=== PATIENT | female | born 2000 | race Caucasian/White ===

== ENCOUNTER 2021-02-05 16:42 | Emergency (ER) | payer SELFPAY ==
[2021-02-05 16:44] VITALS: BP 123/78; PULSE 80; RESP 17; TEMP 36.8; O2SAT 100; BMI 30.5
--- NOTE | 2021-02-05 16:50 | XRR_ITS ---
PROCEDURE INFORMATION: Exam: XR Right Finger(s) Exam date and time: 02/05/2021 5:11 PM Age: 20 years old Clinical indication: Injury or trauma; Other: Smashed; Crushing; Right; Middle finger; Additional info: Trauma/crush injury; 3rd TECHNIQUE: Imaging protocol: XR Right fingers. Views: Minimum 2 views. COMPARISON: No relevant prior studies available. FINDINGS: Bones/joints: 3rd digit shows no evidence of fracture. Soft tissues: The 3rd digit nail bed is displaced. There is soft tissue effusion in the distal aspect of the 3rd digit. No clear-cut laceration or soft tissue foreign body is seen. XR/XR finger RT min 2V [id number] IMPRESSION: 1. No acute fracture is seen. 2. Soft tissue injury as described above 3rd digit
--- NOTE | 2021-02-05 16:55 | W.ED.UPPEXIN ---
Documented by User: KIT White 02/05/21 16:57 HPI - Extremity Injury (Upper) General: Chief Complaint: Wound/Laceration Stated Complaint: R. Hand Injury (Finger) Time Seen by Provider: 02/05/21 16:44 Source: patient Mode of arrival: ambulatory Limitations: no limitations History of Present Illness: HPI narrative: Patient is a 20-year-old female who presents to ED today with complaints of a crush injury to her right third finger after she accidentally caught it in a car door. complaint: injury to: right and finger Onset (ago): hour(s) Other Extremity Injury: Right: fingers Other injuries: none Handedness: right Place: home Severity: moderate Relieving factors: none Exacerbating factors: none Context: crush Associated symptoms: Reports no associated symptoms Physical Exam Const: COMMON NORMALS: no acute distress, average body habitus, patient oriented x3, no limitations, healthy appearing, alert and well nourished Extremity: GENERAL: Yes normal exam except as noted OTHER: almost complete nail avulsion to R 3rd digit; nail fold appears intact; blood noted so nail bed damage could not be assessed; will irrigate and re-assess; no other injuries noted Neuro: COMMON NORMALS: patient oriented x3, moves all extremities, no focal motor deficits and no sensory deficits noted SENSORIUM/ORIENTATION: Yes alert Course Vital Signs: Vital signs: Vital Signs Temperature 98.3 F 02/05/21 16:44 Pulse Rate 79 02/05/21 17:07 Respiratory Rate 16 02/05/21 17:07 Blood Pressure 112/71 02/05/21 17:07 Pulse Oximetry 100 02/05/21 17:07 Discharge Plan Discharge Patient Disposition: Home Clinical Impression: Nailbed avulsion Condition: Stable Prescriptions: No Action ibuprofen 200 mg Tablet 800 mg PO ONCE PRN (Reason: Pain) RF: 0 Discharge Orders: Discharge ED (Routine); Ordered 02/05/21 Ordered By: Griselda Quiroga Referrals: Laith Braga MD [Primary Care Provider] - Discharge Diet: Advance as tolerated Discharge Activity: Increase activity as tolerated Patient Instructions: Opioid Safety Activity Restrictions/Additional Instructions: Please keep clean and dry and dressing in place next 2-3 days but clean 2-3 times per day as discussed. Please return to ER with any concerns Sign Out Sign Out Data: Patient Sign Out occurred on 02/05/21 at 17:06. Patient's care was discussed, and care was transferred from to Griselda Quiroga. Coding Level of Care Code ED Air Brake Man for Chg Fwd Exam Expanded Problem Focused Documented by User: Griselda Quiroga 02/05/21 19:19 HPI - Extremity Injury (Upper) General: Chief Complaint: Wound/Laceration Stated Complaint: R. Hand Injury (Finger) Time Seen by Provider: 02/05/21 16:44 History of Present Illness: Associated symptoms: Denies neck pain or weakness in extremities Review of Systems Const: Denies: fever(s), chills, body aches, change in appetite, change in weight, fatigue, malaise or diaphoresis Eyes: Denies: change in vision, blurry vision, blind spots, photophobia, eye discomfort, eye discharge, eye redness, floaters or seeing flashes ENMT: Denies: throat pain, uvular edema, enlarged tonsils, odynophagia, hoarseness, mouth pain, swelling of lips/tongue, oral sores, bleeding gums, dental pain, dry mouth, ear or mastoid pain, ear discharge, change in hearing, tinnitus, disequilibrium, nasal discharge, nasal congestion, post nasal drip or sinus pain Card: Denies: chest pain, palpitations, irregular heart rhythm, edema, swelling of feet/ankles, lightheadedness, syncope, pre-syncope, dyspnea on exertion, orthopnea, leg pain with exertion or acrocyanosis Resp: Denies: dyspnea, productive cough, non-productive cough, wheezing, stridor, pain on inspiration, change in phlegm color, hemoptysis or chest congestion GI: Denies: abdominal pain, nausea, vomiting, hematemesis, dysphagia, diarrhea, constipation, GI cramping, change in bowel habits or rectal pain : Denies: flank pain, difficulty voiding, dysuria, urinary frequency, urinary urgency, urinary hesitancy or hematuria Musc: Reports: extremity pain (nail avulsion to right 3rd digit); Denies: neck pain, back pain, extremity swelling, joint pain, joint swelling, joint redness, joint warmth or deformity Skin/Breast: Denies: rash, pruritus, erythema, sores, new lesions, changes in skin color or dry skin Neuro: Denies: headache(s), numbness in extremities, weakness in extremities, sensory changes, lack of coordination, difficulty walking, frequent falls, dizziness, vertigo, confusion, behavioral changes, Slurred speech present, difficulty communicating thoughts or seizure-like activity Psych: Denies: anxiety, depression, suicidal ideation or homicidal ideation Endo: Denies: polyuria, polydipsia, tired all the time, cold intolerance, excessive sweating, flushing, hot flashes or heat intolerance George/Lymph: Denies: easy bruising, easy bleeding, petechiae, purpura, enlarged lymph nodes or tender lymph nodes All/Imm: Denies: urticaria, throat swelling, tongue swelling, facial swelling, acute wheezing or itchy eyes Physical Exam HENMT: THROAT: no uvular edema Procedures Laceration Laceration 1: Site: hand (right 3rd digit) Size (cm): 1.5 Description: irregular Depth: simple, single layer Local Anesthetic: lidocaine 1% Amount of anesthesia used (mL): 8 Pre-repair: wound explored and irrigated extensively Technique: other (no sutures required nail was remoed without difficulty) Course Vital Signs: Vital signs: Vital Signs Temperature 98.3 F 02/05/21 16:44 Pulse Rate 79 02/05/21 17:07 Respiratory Rate 16 02/05/21 17:07 Blood Pressure 112/71 02/05/21 17:07 Pulse Oximetry 100 02/05/21 17:07 MDM - Extremity Injury (Upper) MDM Narrative: Medical decision making narrative: Pt is well appearing non toxic and in no acute distress. Please see procedure note for details. xray reveals no fracture or dislocation. Wound was dressed and tetanus is UTD. Discharge Plan Discharge Patient Disposition: Home Clinical Impression: Nailbed avulsion Condition: Stable Prescriptions: No Action ibuprofen 200 mg Tablet 800 mg PO ONCE PRN (Reason: Pain) RF: 0 Discharge Orders: Discharge ED (Routine); Ordered 02/05/21 Ordered By: Griselda Quiroga Referrals: Laith Braga MD [Primary Care Provider] - Discharge Diet: Advance as tolerated Discharge Activity: Increase activity as tolerated Patient Instructions: Opioid Safety Activity Restrictions/Additional Instructions: Please keep clean and dry and dressing in place next 2-3 days but clean 2-3 times per day as discussed. Please return to ER with any concerns Sign Out Sign Out Data: Patient Sign Out occurred on 02/05/21 at 17:06. Patient's care was discussed, and care was transferred from to [facility]. Coding Level of Care Code ED Air Brake Man for Uvaldo Fwd Exam Expanded Problem Focused
[2021-02-05 17:07] VITALS: BP 112/71; PULSE 79; RESP 16; O2SAT 100
[2021-02-05] MEDS: lidocaine 1% INJ 20 mL INJECTION (17:53)
== END 2021-02-05 18:20 | disposition home or self-care (01) ==
PROVIDERS: Emergency Provider Registered Nurse; PCP Family Medicine
DX: S61.302A Unspecified open wound of right middle finger with damage to nail, initial encounter (principal); W23.0XXA Caught, crushed, jammed, or pinched between moving objects, initial encounter
CPT/HCPCS: 73140; 99283

== ENCOUNTER → 2021-06-27 11:22 | Outpatient (BNVA) | payer SELFPAY | PROVIDERS: Absent Provider Family Medicine; PCP Family Medicine | DX: J06.9 Acute upper respiratory infection, unspecified (principal); J32.9 Chronic sinusitis, unspecified; R19.7 Diarrhea, unspecified; R51.9 Headache, unspecified; R11.0 Nausea | CPT/HCPCS: 80053; 85025 ==

== ENCOUNTER → 2022-04-10 15:28 | Outpatient (BNVA) | payer MEDICAID, SELFPAY | PROVIDERS: PCP Family Medicine; Visit Provider Nurse Practitioner Family | DX: F41.9 Anxiety disorder, unspecified (principal) | CPT/HCPCS: 80053; 84443; 85025 ==

== ENCOUNTER → 2022-12-04 16:00 | Outpatient (BNVA) | payer MEDICAID, SELFPAY | PROVIDERS: PCP Family Medicine; Referring Provider Nurse Practitioner Family; Visit Provider Nurse Practitioner Women's Health | DX: Z13.1 Encounter for screening for diabetes mellitus (principal); Z12.4 Encounter for screening for malignant neoplasm of cervix | CPT/HCPCS: 88175 ==

== ENCOUNTER → 2022-12-22 08:05 | Outpatient (BNVA) | payer MEDICAID, SELFPAY | PROVIDERS: PCP Family Medicine; Visit Provider Obstetrics & Gynecology | DX: E11.9 Type 2 diabetes mellitus without complications (principal) | CPT/HCPCS: 82947 ==

== ENCOUNTER → 2023-03-02 12:48 | Outpatient (BNVA) | payer MEDICAID, SELFPAY | PROVIDERS: PCP Family Medicine; Visit Provider Nurse Practitioner | DX: F41.9 Anxiety disorder, unspecified (principal); G43.909 Migraine, unspecified, not intractable, without status migrainosus | CPT/HCPCS: 80053; 85025 ==

== ENCOUNTER 2023-03-30 15:46 | Outpatient (CLI) | payer MEDICAID, SELFPAY ==
--- NOTE | 2023-03-30 16:00 | MR_ITS ---
WS: [id number] MRI BRAIN WITHOUT CONTRAST HISTORY: G43.009 - Migraine without aura, not intractable, without... COMPARISON: None available. TECHNIQUE: Diffusion imaging, multiplanar T1, T2 and FLAIR imaging obtained. Diffusion-weighted imaging is normal. There is increased T2 signal on the FLAIR sequences bilaterally in the cerebellum greatest on the LEFT and possibly in the anterior LEFT temporal lobe. I suspect th is all may be artifact. No acute infarct or hemorrhage. Ramos-white matter differentiation is normal. No remote or acute infarcts are volume loss. Ventricles and extra-axial spaces are normal. No inferior displacement of cerebellar tonsils. The sella turcica and pituitary gland are unremarkabl e. Dural venous sinuses and [place] demonstrate no abnormality on this unenhanced studies. Paranasal sinuses: Mucous retention cyst in the LEFT maxillary sinus. Mastoid air cells: Normal. Calvarium and scalp: Intact. MR/MR head wo con* [id number] IMPRESSION: 1. Diffusion-weighted imaging is normal. 2. Very subtle increased FLAIR and T2 signal bilaterally in the cerebellum and anterior LEFT temporal lobe. The signal changes may be due to motion artifact and suboptimal imaging technique. Recommend short-term MRI follow-up of the bra in to ensure there is no underlying abnormality. Recommend 6 week MRI follow-up exam. 3. No hemorrhage and no hydrocephalus.
== END 2023-03-30 15:47 | disposition home or self-care (01) ==
PROVIDERS: PCP Family Medicine; Visit Provider Nurse Practitioner
DX: G43.009 Migraine without aura, not intractable, without status migrainosus (principal)
CPT/HCPCS: 70551; 80053; 85025

== ENCOUNTER 2023-10-07 06:56 | Outpatient (CLI) | payer BC, MEDICAID, SELFPAY ==
--- NOTE | 2023-10-07 07:15 | MR_ITS ---
WS: [id number] MRI BRAIN WITHOUT CONTRAST HISTORY: G43.009 - Migraine without aura, not intractable, without... COMPARISON: 03/30/2023 TECHNIQUE: Diffusion imaging, multiplanar T1, T2 and FLAIR imaging obtained. No evidence for acute infarct or hemorrhage. Ramos-white matter differentiation is normal. No remote or acute infarcts are volume loss. Previously described signal abnormalities in the cerebel lum and the LEFT temporal lobe are not identified today. These were probably artifactual related to m otion. Ventricles and extra-axial spaces are normal. No inferior displacement of cerebellar tonsils. The sella turcica and pituitary gland are unremarkabl e. Dural venous sinuses and [place] demonstrate no abnormality on this unenhanced studies. Paranasal sinuses: Small mucous retention cyst in the LEFT maxillary sinus. No air-fluid levels. Mastoid air cells: Normal. Calvarium and scalp: Intact. IMPRESSION: 1. No signal abnormality within the cerebellum or temporal lobes. 2. No enhancing mass and no infarct.
== END 2023-10-07 06:57 | disposition home or self-care (01) ==
LOC: RAD 06:57
PROVIDERS: PCP Family Medicine; Visit Provider Nurse Practitioner
DX: G43.009 Migraine without aura, not intractable, without status migrainosus (principal)
CPT/HCPCS: 70551

== ENCOUNTER → 2023-10-28 11:10 | Outpatient (BNVA) | payer BC, MEDICAID, SELFPAY | PROVIDERS: PCP Family Medicine; Visit Provider Nurse Practitioner Family | DX: R05.9 Cough, unspecified (principal); J02.9 Acute pharyngitis, unspecified; J06.9 Acute upper respiratory infection, unspecified | CPT/HCPCS: 87071; 87400; 87426; 87880 ==

== ENCOUNTER → 2024-01-04 11:47 | Outpatient (BNVA) | payer BC, MEDICAID, SELFPAY | PROVIDERS: PCP Family Medicine; Visit Provider Nurse Practitioner | DX: F41.9 Anxiety disorder, unspecified (principal); R53.83 Other fatigue; E55.9 Vitamin D deficiency, unspecified | CPT/HCPCS: 80048; 82306; 82607; 84443; 85025 ==

== ENCOUNTER → 2024-08-22 08:52 | Outpatient (BNVA) | payer BC, MEDICAID, SELFPAY | PROVIDERS: PCP Family Medicine; Visit Provider Nurse Practitioner | DX: E55.9 Vitamin D deficiency, unspecified | CPT/HCPCS: 80053; 82306 ==

== ENCOUNTER 2025-01-18 09:57 | Emergency (ER) | payer BC, SELFPAY ==
--- NOTE | 2025-01-18 10:00 | ECG_ITS ---
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 Measurements Intervals [place] Rate: 88 P: 55 NC: 108 QRS: 63 QRSD: 89 T: 35 QT: 339 QTc: 411 Interpretive Statements SINUS RHYTHM WITH SHORT NC INTERVAL POSSIBLE LEFT ATRIAL ENLARGEMENT [-0.1mV P-WAVE IN V1/V2] NONSPECIFIC ST & T-WAVE ABNORMALITY No previous ECG available for comparison Electronically Signed On 01-18-2025 19:54:28 CDT by Arjun Mckeon M.D. [id number]
[2025-01-18 10:05] VITALS: BP 115/94; PULSE 87; RESP 16; TEMP 36.8; O2SAT 100; BMI 34.4
--- NOTE | 2025-01-18 11:02 | XRR_ITS ---
PROCEDURE INFORMATION: Exam: XR Chest Exam date and time: 01/18/2025 11:38 AM Age: 24 years old Clinical indication: Pain; Angina pectoris; Additional info: Chest pain TECHNIQUE: Imaging protocol: Radiologic exam of the chest. Views: 1 view. COMPARISON: No relevant prior studies available. FINDINGS: Lungs: Unremarkable. No consolidation. Pleural spaces: Unremarkable. No pleural effusion. No pneumothorax. Heart/Mediastinum: Unremarkable. No cardiomegaly. Bones/joints: Unremarkable. Other findings: Right 2.3 cm rounded opacity projects over the superolateral chest wall of unclear etiology. XR/XR chest 1V portable [id number] IMPRESSION: No acute findings.
--- NOTE | 2025-01-18 11:13 | W.ED.CHESTPA ---
HPI - Chest Pain General: Chief Complaint: Chest Pain Stated Complaint: chest pain Time Seen by Provider: 01/18/25 10:02 History of Present Illness: 24-year-old female presents emergency department with left-sided chest discomfort that she describes as a ache 4 out of 10. It started this morning about 45 minutes after she got to work. She states it started gradually about 8:30 AM. She reports she was not feeling anxious and was not doing any physical activity. She is not sure what happened. She is getting over a mild respiratory illness with cough recently. She does report some pain with palpation of her chest. No dyspnea, hemoptysis, sputum production, fever, chills, back pain, arm pain, jaw pain, nausea, vomiting, epigastric or abdominal pain. She has no known cardiopulmonary history. No extremity pain swelling or redness. No history of DVT or PE. SpO2 is 100%. Pulse is in the 70s. Nothing that she can think of makes it better. She is wearing a smart watch which shows that her heart rate has been between 65 and 130, with an average in the 80s. Associated symptoms: Deny abdominal pain, dyspnea, fever(s), nausea, syncope or vomiting Related Data Home Medications ?Medication ?Instructions ?Recorded ?Confirmed ibuprofen 200 mg tablet 800 mg PO ONCE PRN Pain 02/05/21 01/18/25 cholecalciferol (vitamin D3) 25 50 mcg PO DAILY 03/07/24 01/18/25 mcg (1,000 unit) capsule sertraline 25 mg tablet (Zoloft) 25 mg PO QPM 01/18/25 01/18/25 Previous Rx's ?Medication ?Instructions ?Recorded sumatriptan succinate 25 mg tablet See Rx Instructions PO .COMPLEX 11/07/22 #10 tabs norethindrone 1.5 mg-ethinyl 1 tab PO DAILY #84 tabs 12/09/24 estradiol 30 mcg(21)/iron 75 mg(7) tablet (Junel FE 1.5/30 (28)) propranolol 60 mg capsule,24 60 mg PO DAILY #30 caps 12/13/24 hr,extended release (Inderal LA) spironolactone 25 mg tablet 25 mg PO Q12H #60 tabs 12/13/24 topiramate 25 mg tablet (Topamax) 25 mg PO BID #60 tabs 12/13/24 Allergies Allergy/AdvReac Type Severity Reaction Status Date / Time No Known Allergies Allergy Verified 12/13/24 08:40 Review of Systems General: Reports: 10 or more systems reviewed and unremarkable except in HPI and below Const: Denies: fever(s), chills or body aches Eyes: Denies: change in vision ENMT: Denies: throat pain Card: Denies: edema or syncope Resp: Denies: dyspnea or productive cough GI: Denies: abdominal pain, nausea, vomiting or diarrhea : Denies: flank pain, dysuria or urinary frequency Musc: Denies: neck pain, back pain, extremity pain or extremity swelling Skin/Breast: Denies: rash or erythema Neuro: Denies: headache(s), numbness in extremities, weakness in extremities, lack of coordination or difficulty walking PFSH ED PFSH: Medical History Hirsutism Anxiety Migraine without aura Surgical History No pertinent past surgical history Family History Mother Diabetes Father Diabetes Hypertension Grandmother Diabetes Maternal Heart disease Maternal Grandfather Diabetes Paternal Heart disease Paternal Denies family history of Colon cancer Ovarian cancer Hyperlipidemia Breast cancer Uterine cancer Thyroid disease Stroke Social History Smoking and tobacco/nicotine status: never used tobacco/nicotine Second hand smoke exposure: No Alcohol intake: unknown Substance/Drug Use: unknown Adopted: No Caregiver/support person: No Lives independently: No Household members: family Housing: House Marital status: Single service: Yes branch: [employer] Current occupational status: employed Current occupation: [employer] Do you think of yourself as: Straight/Heterosexual Current gender identity: Female Female Reproductive History: Para: 0 Physical Exam Const: COMMON NORMALS: no limitations, alert and well nourished EXAM LIMITATIONS: no altered mental status HENMT: COMMON NORMALS: normocephalic, atraumatic and external ears normal HEAD & SCALP: normocephalic and atraumatic EXTERNAL EAR: Yes external ears normal MOUTH: no muffled voice Eye: COMMON NORMALS: EOMs intact bilaterally, conjunctivae normal and no scleral icterus CONJUNCTIVA: Yes conjunctivae normal Neck/C-Spine: COMMON NORMALS: no JVD GENERAL: Yes normal visual inspection and Yes trachea midline Resp: COMMON NORMALS: normal respiratory effort, No use of accessory muscles and clear to auscultation bilaterally AUSCULTATION: clear to auscultation bilaterally Cardio: COMMON NORMALS: no JVD, regular rate and regular rhythm RATE: regular rate RHYTHM: regular rhythm GI: COMMON NORMALS: Soft to palpation and non-tender PALPATION: Yes Soft to palpation and No Guarding due to palpation present (GI) Extremity: COMMON NORMALS: normal to inspection, full ROM, no clubbing, cyanosis or edema, no calf tenderness and no pedal edema Neuro: COMMON NORMALS: moves all extremities, no focal motor deficits and no sensory deficits noted SENSORIUM/ORIENTATION: Yes alert SPEECH: speech normal Psych: COMMON NORMALS: mental status grossly normal, Normal thought process present, cooperative, normal affect and speech normal SPEECH: Yes normal speech THOUGHT PROCESS: Normal thought process present Skin: COMMON NORMALS: no rashes or lesions noted, turgor normal and no jaundice GENERAL SKIN EXAM: no rashes or lesions noted and turgor normal Course Vital Signs: Vital signs: Vital Signs Temperature 98.3 F 01/18/25 10:05 Pulse Rate 73 01/18/25 12:35 Respiratory Rate 16 01/18/25 12:35 Blood Pressure 119/78 01/18/25 12:35 Pulse Oximetry 100 01/18/25 12:35 Oxygen Delivery Me thod Room Air 01/18/25 12:35 MDM - Chest Pain Medical Decision Making 24-year-old female with nonspecific chest pain. She does have tenderness to palpation on her chest. Her examination is otherwise completely unremarkable. Vitals are reassuring. No abdominal pain or tenderness. Lungs are clear. Regular rate and rhythm. Does not appear anxious. No clinical signs of DVT. SpO2 100% with unlabored breathing. . EKG was obtained at 10:00 EP interpretation. Sinus rhythm, rate 88, normal axis, normal intervals with the exception that her CO interval is slightly less than [address] segment elevations or depressions. Short CO interval can lead to preexcitation syndrome, including WPW syndrome. No delta waves appreciated. I did review the patient's cardiac monitoring data on her watch. I do not see anything sustained above 110 bpm. She had short episodes going up to 130 but they came back down quickly. Overall, this is low risk chest pain. Unlikely ACS, PE, cardiomyopathy, heart failure, pulmonary hypertension, or other life-threatening causes. I will make a note of her short CO interval. We will do a chest x-ray, troponin, CBC, CMP, lipase. If this is reassuring patient can follow-up outpatient Update 1235 CBC, CMP, troponin reviewed. Serum bicarb mildly low. Glucose normal. Not clinically relevant. Troponin undetectably low less than 6 ng/dL. Heart score is low risk for major adverse cardiac event in the next 6 weeks. Patient may be discharged. Patient was reassessed. She is in no acute distress. We went over all of her findings. Nonspecific chest pain with low risk for coronary artery disease. If she continues to have pain she can follow-up with primary care. If she is getting worse or having new symptoms then she needs to return to the emergency department for repeat evaluation. Lab Data I reviewed the patient's lab results. 01/18/25 11:56 01/18/25 11:56 Radiology Impressions Chest X-Ray 01/18/25 11:02 IMPRESSION: No acute findings. Laboratory Results WBC 7.31 10^3/uL (3.29-11.43) 01/18/25 11:56 RBC 4.25 10^6/uL (3.85-5.65) 01/18/25 11:56 Hgb 13.10 g/dL (11.27-16.99) 01/18/25 11:56 Hct 40.5 % (36-47) 01/18/25 11:56 MCV 95.3 fl (85-98) 01/18/25 11:56 MCH 30.8 pg (27-33) 01/18/25 11:56 MCHC 32.3 g/dL (30-55) 01/18/25 11:56 RDW 12.9 % (12.1-15.1) 01/18/25 11:56 Plt Count 254 10^3/cmm (157-399) 01/18/25 11:56 MPV 10.6 fL (7.4-10.4) H 01/18/25 11:56 Neut % (Auto) 57.0 % 01/18/25 11:56 Lymph % (Auto) 34.2 % 01/18/25 11:56 [place] % (Auto) 6.7 % 01/18/25 11:56 Eos % (Auto) 1.2 % 01/18/25 11:56 Baso % (Auto) 0.8 % 01/18/25 11:56 Neut # (Auto) 4.16 10^3/uL (1.8-7.7) 01/18/25 11:56 Lymph # (Auto) 2.5 10^3/uL (0.8-4.8) 01/18/25 11:56 [place] # (Auto) 0.5 10^3/uL (0.2-0.9) 01/18/25 11:56 Eos # (Auto) 0.1 10^3/uL (0.0-0.8) 01/18/25 11:56 Baso # (Auto) 0.1 10^3/uL (0.0-0.1) 01/18/25 11:56 Nucleated RBC % (auto) 0 % 01/18/25 11:56 Nucleated RBCs # 0.0 /100WBC 01/18/25 11:56 Sodium 141 mmol/L (136-145) 01/18/25 11:56 Potassium 4.5 mmol/L (3.5-5.1) 01/18/25 11:56 Chloride 111 mmol/L (98-107) H 01/18/25 11:56 Carbon Dioxide 20 mmol/L (22-29) L 01/18/25 11:56 Anion Gap 14.5 (5-19) 01/18/25 11:56 BUN 12 mg/dL (6-20) 01/18/25 11:56 Creatinine 0.7 mg/dL (0.5-0.9) 01/18/25 11:56 GFR Calculation 102.8 mL/min (90-130) 01/18/25 11:56 Glucose 75 mg/dL (65-115) 01/18/25 11:56 Calculated Osmolality 290 mOsm/kg (285-295) 01/18/25 11:56 Calcium 9.6 mg/dL (8.5-10.5) 01/18/25 11:56 Total Bilirubin 0.2 mg/dL (0.15-1.2) 01/18/25 11:56 AST 13 U/L (0-32) 01/18/25 11:56 ALT 15 U/L (0-33) 01/18/25 11:56 Alkaline Phosphatase 52 U/L (35-105) 01/18/25 11:56 Troponin T Baseline < 6 ng/L (0-10) 01/18/25 11:56 Total Protein 6.9 g/dL (6.6-8.7) 01/18/25 11:56 Albumin 4.4 g/dL (3.5-5.2) 01/18/25 11:56 Globulin 2.5 g/dL (1.3-4.6) 01/18/25 11:56 Lipase 28 U/L (13-60) 01/18/25 11:56 All radiology interpretation(s) finalized by discharge Discharge Plan Discharge Patient Disposition: Home Clinical Impression: Acute nonspecific chest pain with low risk of coronary artery disease Condition: Stable Prescriptions: No Action cholecalciferol (vitamin D3) 25 mcg (1,000 unit) capsule 50 mcg PO DAILY topiramate [Topamax] 25 mg tablet 25 mg PO BID Qty: 60 0RF Rx Instructions: start at bedtime for one week then two times day. propranolol [Inderal LA] 60 mg capsule,extended release 24 hr 60 mg PO DAILY Qty: 30 5RF spironolactone 25 mg tablet 25 mg PO Q12H Qty: 60 5RF sumatriptan succinate 25 mg tablet See Rx Instructions PO .COMPLEX Qty: 10 5RF Rx Instructions: Take 1 tab at onset of headache; if no relief may repeat 1 tab after at least 2 hrs; max = 4 tabs/24 hr PO norethindrone-e.estradiol-iron [ (28)] 1.5 mg-30 mcg (21)/75 mg (7) tablet 1 tab PO DAILY Qty: 84 3RF ibuprofen 200 mg Tablet 800 mg PO ONCE PRN (Reason: Pain) sertraline [Zoloft] 25 mg tablet 25 mg PO QPM Discharge Orders: Discharge ED (Routine); Ordered 01/18/25 Ordered By: Jonathon Ricardo Referrals: Laith Braga MD [Primary Care Provider] - 01/25/25 (Follow-up nonspecific chest pain from the emergency department on 01/18/2025.) Patient Instructions: Chest Pain (ED) Activity Restrictions/Additional Instructions: Please read all discharge instructions and abide by recommendations and return precautions. Make an appointment to follow-up with your primary care doctor as directed for follow-up. Return to ER if getting worse or other emergent symptoms. Print Language: [place] Coding Level of Care Code ED Gastroenterology Technician for Uvaldo Menendez
[2025-01-18 12:06] LABS: Basophils # 0.1 10^3/uL (0.0-0.1); Basophils % 0.8 %; Eosinophils # 0.1 10^3/uL (0.0-0.8); Eosinophils % 1.2 %; Hematocrit 40.5 % (36-47); Lymphocytes # 2.5 10^3/uL (0.8-4.8); Lymphocytes % 34.2 %; Mean Corpuscular HGB Conc 32.3 g/dL (30-55); Mean Corpuscular Hemoglobin 30.8 pg (27-33); Mean Corpuscular Volume 95.3 fl (85-98); Mean Platelet Volume 10.6 fL (7.4-10.4); Monocytes # 0.5 10^3/uL (0.2-0.9); Monocytes % 6.7 %; Neutrophils # 4.16 10^3/uL (1.8-7.7); Nucleated Red Blood Cells % 0 %; Platelet Count 254 10^3/cmm (157-399); Red Blood Count 4.25 10^6/uL (3.85-5.65); Red Cell Distribution Width 12.9 % (12.1-15.1); White Blood Count 7.31 10^3/uL (3.29-11.43)
[2025-01-18 12:23] LABS: Alanine Aminotransferase 15 U/L (0-33); Albumin Level 4.4 g/dL (3.5-5.2); Alkaline Phosphatase 52 U/L (35-105); Anion Gap 14.5 (5-19); Aspartate Amino Transferase 13 U/L (0-32); Blood Urea Nitrogen 12 mg/dL (6-20); Calcium 9.6 mg/dL (8.5-10.5); Carbon Dioxide 20 mmol/L (22-29); Chloride 111 mmol/L (98-107); Creatinine Clr Calc Pharmacy 150.3963; Globulin 2.5 g/dL (1.3-4.6); Glomerular Filtration Rate 102.8 mL/min (90-130); Glucose 75 mg/dL (65-115); Lipase 28 U/L (13-60); Osmolality Calculated 290 mOsm/kg (285-295); Potassium 4.5 mmol/L (3.5-5.1); Sodium 141 mmol/L (136-145); Total Bilirubin 0.2 mg/dL (0.15-1.2); Total Protein 6.9 g/dL (6.6-8.7)
[2025-01-18 12:24] LABS: Troponin(5th) Baseline < 6 ng/L (0-10)
[2025-01-18 12:35] VITALS: BP 119/78; PULSE 73; RESP 16; O2SAT 100
--- NOTE | 2025-01-18 13:02 | ECG_ITS ---
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 Measurements Intervals [place] Rate: 63 P: 37 [place]: 126 QRS: 55 QRSD: 88 T: 20 QT: 385 QTc: 397 Interpretive Statements SINUS RHYTHM WITH SINUS ARRHYTHMIA Compared to ECG 01/18/2025 10:00:12 Short [place] interval no longer present T-wave abnormality no longer present Electronically Signed On 01-18-2025 19:53:24 CDT by Arjun Mckeon M.D. [email or web address]
[2025-01-18 13:08] VITALS: BP 121/90; PULSE 89; O2SAT 99
== END 2025-01-18 13:10 | disposition home or self-care (01) ==
PROVIDERS: Emergency Provider Emergency Medicine; PCP Family Medicine
DX: R07.89 Other chest pain (principal); I25.10 Atherosclerotic heart disease of native coronary artery without angina pectoris
CPT/HCPCS: 36415; 71045; 80053; 83690; 84484; 85025; 93005; 99285

== ENCOUNTER → 2025-01-25 10:17 | Outpatient (BNVA) | payer BC, SELFPAY | PROVIDERS: PCP Family Medicine; Visit Provider Nurse Practitioner | DX: E55.9 Vitamin D deficiency, unspecified (principal) | CPT/HCPCS: 82306 ==

== ENCOUNTER 2025-02-09 09:43 | Outpatient (CLI) | payer BC, SELFPAY ==
--- NOTE | 2025-02-09 10:00 | USCV_ITS ---
Stephanie Flaherty Age: 24 Gender: F : 2000 Exam Date: 02/09/2025 09:58 Ordering Phys: Robyn Rodriguez Technologist: [place] Exam Location: [facility] – [place] Indication: CP, Increased HR BP: 124 / 74 HR: 63 Rhythm: Sinus Technical Quality: Adequate MEASUREMENTS (Male / Female) Normal Values 2D ECHO LV Diastolic Diameter PLAX 4.0 cm 4.2 - 5.9 / 3.9 - 5.3 cm IVS Diastolic Thickness 1.0 cm 0.6 - 1.0 / 0.6 - 0.9 cm IVS Systolic Thickness 1.6 cm LVPW Diastolic Thickness 0.9 cm 0.6 - 1.0 / 0.6 - 0.9 cm LVPW Systolic Thickness 1.2 cm LVOT Diameter 1.9 cm LV Ejection Fraction 2D Teich 65.7 % LV Ejection Fraction MOD 4C 53.3 % LV Ejection Fraction MOD 2C 74.4 % LV Ejection Fraction 2C AL 73.6 % LA Diameter 3.1 cm RA Systolic Volume 4C AL 30.1 ml RA Systolic Volume 4C MOD 29.7 ml LA Sys Volume AL 53.7 cm cubed LA Sys Volume Index AL 24.3 cm cubed/m squared Aorta at Sinotubular Diameter 2.5 cm IVC Diameter 1.4 cm M-MODE LA Ao Ratio MM 1.6 AV Cusp Separation MM 1.0 cm DOPPLER AV Peak Velocity 106.0 cm/s LVOT Peak Velocity 94.0 cm/s AV Area Cont Eq vti 2.7 cm squared AV Area Cont Eq pk 2.5 cm squared MV Peak Velocity 106.0 cm/s MV Area PHT 4.7 cm squared Mitral E to A Ratio 2.0 TV Peak E Velocity 95.0 cm/s PV Peak Velocity 99.0 cm/s FINDINGS Left Ventricle Normal left ventricular size, systolic function and wall thickness, with no regional wall motion abnormalities. Left ventricular ejection fraction is estimated at 55 %. Normal diastolic function. Right Ventricle The right ventricle is normal in size and function. Right Atrium The right atrium is normal in size. Left Atrium The left atrium is normal in size. Mitral Valve Possible Mild mitral valve prolapse with mild mitral regurgitation , no mitral valve stenosis Aortic Valve Structurally normal aortic valve without significant sclerosis or stenosis. There is no aortic regurgitation. Tricuspid Valve Structurally normal tricuspid valve without significant stenosis or regurgitation. Pulmonary artery systolic pressure is normal. Pulmonic Valve Structurally normal pulmonic valve without significant stenosis. There is no pulmonic regurgitation. Pericardium Normal pericardium without effusion. Aorta Normal ascending aorta dimension. IVC The inferior vena cava appears normal. CONCLUSIONS Normal left ventricular size, systolic function and wall thickness, with no regional wall motion abnormalities. Left ventricular ejection fraction is estimated at 55 %. Normal diastolic function. Possible Mild mitral valve prolapse with mild mitral regurgitation , no mitral valve stenosis Normal pericardium without effusion. Right atrial pressure is around 5 mm of mercury. Cassi Horn MD (Electronically Signed) Final Date: 17 Feb 2025 10:04 S
== END 2025-02-09 09:44 | disposition home or self-care (01) ==
PROVIDERS: PCP Family Medicine; Visit Provider Nurse Practitioner
DX: R07.9 Chest pain, unspecified (principal); Z91.89 Other specified personal risk factors, not elsewhere classified; R93.1 Abnormal findings on diagnostic imaging of heart and coronary circulation; I34.0 Nonrheumatic mitral (valve) insufficiency
CPT/HCPCS: 93306

== ENCOUNTER → 2025-03-09 12:07 | Outpatient (BNVA) | payer BC, SELFPAY | PROVIDERS: PCP Family Medicine; Referring Provider Nurse Practitioner; Visit Provider Psychiatry & Neurology Neurology | DX: G43.019 Migraine without aura, intractable, without status migrainosus (principal); R56.9 Unspecified convulsions | CPT/HCPCS: 36415; 82607; 82746; 83735; 83921 ==

== ENCOUNTER 2025-03-30 13:32 | Outpatient (CLI) | payer BC, SELFPAY ==
--- NOTE | 2025-03-30 13:45 | MR_ITS ---
WS: [id number] MRI BRAIN WITH AND WITHOUT CONTRAST HISTORY: I47.10 - Supraventricular tachycardia, unspecified COMPARISON: 10/07/2023, 03/30/2023 TECHNIQUE: Multiplanar imaging performed through the brain with MultiHance 20 ml's IV. No acute infarcts are seen. Ramos-white matter differentiation is well preserved. Normal hippocampal formations. No atrophy. No susceptibility artifacts or prior lacunar infarcts. Ventricles and extra-axial spaces are normal. Clivus and pituitary gland are normal. Visualized posterior fossa and brainstem are also normal. Postcontrast images are negative for masses or vascular malformations. Dural venous sinuses are normal. Paranasal sinuses: Well aerated with no significant disease. Mastoid air cells: Normal. Calvarium and scalp: Normal. MR/MR head wo/w con [id number] IMPRESSION: 1. Normal MRI brain with contrast. 2. Normal hippocampal formations. 3. No prior infarcts or vascular malformations.
--- NOTE | 2025-03-30 13:47 | MR_ITS ---
WS: [id number] MRA CAROTID ARTERIES HISTORY: SUPRAVENTRICULAR TACHYCARDIA/SYNCOPE COMPARISON: None available. TECHNIQUE: MRA is performed with intravenous gadolinium. MIP and source images are reviewed. Right: Normal cervical carotid arteries. Bifurcation is intact. Left: Normal cervical carotid arteries. Bifurcation is intact. Subclavian Arteries: Normal. Patent. Vertebral Arteries: Normal. Codominant vertebral arteries. MR/MR angio neck w con* [id number] IMPRESSION: Normal MR angiogram carotid arteries.
== END 2025-03-30 13:33 | disposition home or self-care (01) ==
LOC: RAD 13:35
PROVIDERS: PCP Family Medicine; Visit Provider Psychiatry & Neurology Neurology
DX: I47.10 Supraventricular tachycardia, unspecified (principal); R56.9 Unspecified convulsions; G43.019 Migraine without aura, intractable, without status migrainosus; R55 Syncope and collapse
CPT/HCPCS: 70548; 70553

== ENCOUNTER → 2025-07-10 14:42 | Outpatient (BNVA) | payer BC, SELFPAY | PROVIDERS: PCP Family Medicine; Visit Provider Nurse Practitioner | DX: G62.9 Polyneuropathy, unspecified (principal); E55.9 Vitamin D deficiency, unspecified | CPT/HCPCS: 36415; 82306; 82607; 82746; 83036; 83525; 83921; 85651; 86140; 86334 ==